=== PATIENT | female | born 1935 | race Caucasian/White ===

== ENCOUNTER 2017-01-09 01:52 | Emergency (ER) | payer MEDICARE ==
[~2017-01-09] VITALS: Ht 147.3 cm; Wt 63.6 kg
[~2017-01-09 01:52] MED LIST: ATEN25TA PO; LEVO88TA4 PO; LISI-167 PO; OXYB10TA PO; RANI150T8 PO; SIMV20TA3 PO
[2017-01-09] MEDS ORDERED: TRANEXAMIC ACID 100 MG/ML, 10ML IV ONE (04:00)
[2017-01-09] MEDS ORDERED: TRANEXAMIC ACID 1,000 MG in SODIUM CHLORIDE 0.9% 100 ML IV ONE (04:30)
[2017-01-09 05:42] VITALS: BP 114/54
== END 2017-01-09 05:45 | disposition home or self-care (01) ==
LOC: ED 02:13
DX: I83.91 Asymptomatic varicose veins of right lower extremity (principal); I10 Essential (primary) hypertension; E03.9 Hypothyroidism, unspecified; E78.5 Hyperlipidemia, unspecified; Z90.49 Acquired absence of other specified parts of digestive tract; Z90.710 Acquired absence of both cervix and uterus; Z88.0 Allergy status to penicillin; Z88.2 Allergy status to sulfonamides; Z88.3 Allergy status to other anti-infective agents
CPT/HCPCS: 99283

== ENCOUNTER → 2017-02-14 | Outpatient (CLI) | payer MEDICARE | END | disposition home or self-care (01) | LOC: CVU 11:40 | PROVIDERS: ATTEND Internal Medicine Cardiovascular Disease | DX: I08.1 Rheumatic disorders of both mitral and tricuspid valves (principal); R94.31 Abnormal electrocardiogram [ECG] [EKG]; R60.0 Localized edema; I10 Essential (primary) hypertension; R06.02 Shortness of breath; M79.669 Pain in unspecified lower leg; I37.1 Nonrheumatic pulmonary valve insufficiency | CPT/HCPCS: 93306; 93922 ==

== ENCOUNTER → 2017-03-10 | Outpatient (CLI) | payer MEDICARE | END | disposition home or self-care (01) | LOC: RAD 15:03 | PROVIDERS: ATTEND Family Medicine | DX: M16.11 Unilateral primary osteoarthritis, right hip (principal); M47.897 Other spondylosis, lumbosacral region; M41.86 Other forms of scoliosis, lumbar region; M43.16 Spondylolisthesis, lumbar region; M48.06 Spinal stenosis, lumbar region | CPT/HCPCS: 72110 ==

== ENCOUNTER → 2017-05-01 | Outpatient (CLI) | payer MEDICARE | END | disposition home or self-care (01) | LOC: CFH 14:40 | PROVIDERS: ATTEND Pain Medicine Pain Medicine | DX: M48.061 Spinal stenosis, lumbar region without neurogenic claudication (principal) | CPT/HCPCS: 72148 ==

== ENCOUNTER → 2017-08-16 | Outpatient (CLI) | payer MEDICARE | LOC: RAD 16:05 | PROVIDERS: ATTEND Nurse Practitioner Family | DX: M19.071 Primary osteoarthritis, right ankle and foot (principal); M25.571 Pain in right ankle and joints of right foot ==

== ENCOUNTER → 2017-10-18 | Outpatient (CLI) | payer MEDICARE ==
[~2017-10-18] MED LIST changes: +RANI150T23 PO; -RANI150T8 PO
== END ==
LOC: CVU 14:37
PROVIDERS: ATTEND Physician Assistant Medical
DX: I87.2 Venous insufficiency (chronic) (peripheral) (principal)
CPT/HCPCS: 93970

== ENCOUNTER 2019-11-24 20:27 | Emergency (ER) | payer MEDICARE ==
[~2019-11-24] VITALS: Ht 147.3 cm; Wt 65.0 kg
[~2019-11-24 20:27] MED LIST changes: -OXYB10TA PO; +OXYB10TA26 PO; +RANI-467 PO; -RANI150T23 PO; +SIMV20TA19 PO; -SIMV20TA3 PO
[2019-11-24] MEDS ORDERED: AMLO10TA8 PO (20:46)
[2019-11-24] MEDS ORDERED: VALS1TAB26 PO (20:46)
[2019-11-24] MEDS ORDERED: triamcinolon TP (20:46)
[2019-11-24] MEDS ORDERED: SIMV40TA20 PO (20:46)
[2019-11-24] MEDS ORDERED: [UNRECOGNIZED DRUG - OTHER] TP (20:46)
--- NOTE | 2019-11-24 20:46 | NUR ---
PT BIB [facility] FOR [facility] WHILE WALKING INTO HOME, NO LOC, PT STATES THIS IS HER ONLY RECENT FALL. HEMATOMA NOTED ON BACK OFPT HEAD, DENIES DIZZINESS BUT STATES SHE HAS AN "8/10 SMITH". PT ALSO STATES TAILBONE IS UNCOMFORTABLE. PT IS ANOx4, MAEx4, FCS no SOB, CLEAR SPEECH, NAD, RESP WNL, P/W/D. WCTM. [facility] AT FOR EVAL AND POC.
[2019-11-24] MEDS ORDERED: amlodipine PO (20:54)
--- NOTE | 2019-11-24 20:54 | NUR ---
pt has positive CMS in LE, no loss of bowel or bladder, no obvious deformities in hips, denies any blood thinners, PERRLA intact, gross neuro intact. given warm blanket for comfort, call light on lap denies additional needs at this time, WCTM.
[2019-11-24] MEDS ORDERED: AMLODIPINE 5 MG TABLET ONE (21:11)
--- NOTE | 2019-11-24 21:13 | NUR ---
PT TO CT VIA AUDREY, NO CHANGE IN CONDITION.
[2019-11-24] MEDS ORDERED: AMLODIPINE 5 MG TABLET PO ONE (21:30)
[2019-11-24 21:46] VITALS: BP 182/53
--- NOTE | 2019-11-24 21:47 | NUR ---
PT BACK FROM CT AND RAD, NO CHANGE IN CONDITION, DENIES ADDITIONAL NEEDS AT THIS TIME, WCTM.
--- NOTE | 2019-11-24 22:07 | NUR ---
Patient given discharge instructions and they have confirmed that they understand the instructions. Patient ambulatory with steady gait WITH CANE (BASELINE). NO BELONGINGS LEFT BEHIND IN ROOM, PT DENIES ANY ADDITIONAL NEEDS OR QUESTIONS AT THIS TIME, P/W/D, [facility] INTACT.
== END 2019-11-24 22:10 | disposition home or self-care (01) ==
LOC: ED 21:53
DX: S06.0X0A Concussion without loss of consciousness, initial encounter (principal); I10 Essential (primary) hypertension; M54.5 Low back pain; W18.30XA Fall on same level, unspecified, initial encounter; Y93.89 Activity, other specified; Y92.009 Unspecified place in unspecified non-institutional (private) residence as the place of occurrence of the external cause; Y99.8 Other external cause status
CPT/HCPCS: 70450; 72220; 99284

== ENCOUNTER 2019-11-25 17:06 | Emergency (ER) | payer MEDICARE ==
[~2019-11-25] VITALS: Ht 147.3 cm; Wt 65.6 kg
[~2019-11-25 17:06] MED LIST changes: +AMLO10TA8 PO; +SIMV40TA20 PO; +VALS1TAB26 PO; +[UNRECOGNIZED DRUG - OTHER] TP; +amlodipine PO; +triamcinolon TP
[2019-11-25] MEDS ORDERED: CARBAMIDE PEROXIDE EAR DROPS 6.5%, 15ML RIGHT EAR ONE (18:00)
[2019-11-25] MEDS ORDERED: CARBAMIDE PEROXIDE EAR DROPS 6.5%, 15ML ONE (18:23)
[2019-11-25] MEDS ORDERED: CARBAMIDE PEROXIDE EAR DROPS 6.5%, 15ML LEFT EAR ONE (18:30)
--- NOTE | 2019-11-25 19:09 | NUR ---
ASSUMED CARE OF PT AT THIS TIME.
[2019-11-25 20:08] VITALS: BP 140/59
--- NOTE | 2019-11-25 20:08 | NUR ---
PT EAR IRRIGATED PER EDT.
== END 2019-11-25 20:11 | disposition home or self-care (01) ==
LOC: ED 19:11
DX: H60.592 Other noninfective acute otitis externa, left ear (principal); I10 Essential (primary) hypertension
CPT/HCPCS: 99283

== ENCOUNTER 2019-11-27 16:00 | Outpatient (CLI) | payer MEDICARE | END 2019-11-27 23:59 | disposition home or self-care (01) | LOC: CFH 16:00 | PROVIDERS: ATTEND Internal Medicine Cardiovascular Disease | DX: I34.0 Nonrheumatic mitral (valve) insufficiency (principal) | CPT/HCPCS: 93306 ==

== ENCOUNTER → 2020-12-09 | Outpatient (CLI) | payer MEDICARE ==
[~2020-12-09] MED LIST changes: +AMLO-211 PO; -AMLO10TA8 PO; +DEXAMETHASONE 4 MG/ML, 5ML ONE; +FENTANYL PF 250 MCG/5ML ONE; +ONDANSETRON 2MG/ML, 2ML ONE; +PHENYLEPHRINE 10 MG/ML ONE; +PROPOFOL 10 MG/ML, 20ML ONE; +ROCURONIUM 10MG/ML,5ML ONE; +SUCCINYLCHOLINE 20 MG/ML, 10ML ONE
== END | disposition home or self-care (01) ==
LOC: CFH 11:07
PROVIDERS: ATTEND Registered Nurse
DX: I08.8 Other rheumatic multiple valve diseases (principal); I11.9 Hypertensive heart disease without heart failure; E78.5 Hyperlipidemia, unspecified; I42.1 Obstructive hypertrophic cardiomyopathy
CPT/HCPCS: 93306; J1100; J2405; J2704; J3010; J0330; J2370